=== PATIENT | male | born 1945 | race Caucasian/White ===

== ENCOUNTER → 2016-08-29 | Outpatient (CLI) | payer OTHER, MEDICARE ==
[2016-08-29 12:41] LABS: HEMOGLOBIN A1C 6.65 % (4.2-6.0); MEAN BLOOD GLUCOSE (CALC) 135.445 mg/dL
== END ==
LOC: MOB LAB 10:22
DX: E11.9 Type 2 diabetes mellitus without complications (principal)
CPT/HCPCS: 36415; 83036; 99213

== ENCOUNTER → 2016-11-20 | Outpatient (CLI) | payer OTHER, MEDICARE ==
[2016-11-20 12:18] LABS: BUN/CREATININE RATIO 25.45 (6-20); CALCIUM 9.7 mg/dL (8.7-10.7)
== END ==
LOC: MOB LAB 11:29
DX: E11.9 Type 2 diabetes mellitus without complications (principal); I10 Essential (primary) hypertension
CPT/HCPCS: 36415; 80048

== ENCOUNTER → 2017-03-15 | Outpatient (CLI) | payer OTHER, MEDICARE ==
[2017-03-15 17:36] LABS: BUN/CREATININE RATIO 27.5 (6-20); CALCIUM 9.7 mg/dL (8.7-10.7); SERUM ALBUMIN 4.5 g/dL (3.5-4.8)
[2017-03-15 17:37] LABS: HEMATOCRIT 45.6 % (42.0-52.0); HEMOGLOBIN 16.4 g/dL (14.0-18.0); MEAN CORPUSCULAR HEMOGLOBIN 32.4 PG (27-31); MEAN CORPUSCULAR VOLUME 90.1 FL (80-90); RED BLOOD COUNT 5.06 10^6/uL (4.70-6.10)
[2017-03-15 17:38] LABS: BASOPHILS # (AUTO) 0.04 10*3/UL; BASOPHILS % (AUTO) 0.7 % (0-1); EOSINOPHILS # (AUTO) 0.14 10*3/UL; EOSINOPHILS % (AUTO) 2.5 % (0-8); LYMPHOCYTES # (AUTO) 2.68 10*3/uL; MEAN PLATELET VOLUME 12.1 FL (7.4-12.2); MONOCYTES # (AUTO) 0.56 10*3/UL (0.3-0.8); MONOCYTES % (AUTO) 10.1 % (5-15); NEUTROPHILS # (AUTO) 2.13 10*3/UL; NEUTROPHILS % (AUTO) 38.3 % (50-80); PLATELET MORPHOLOGY COMMENT NORMAL MORPHOLOGY (NORM); RBC MORPHOLOGY COMMENT NORMAL MORPHOLOGY (NORM); WBC MORPHOLOGY COMMENT NORMAL MORPHOLOGY (NORM)
[2017-03-15 17:53] LABS: HEMOGLOBIN A1C 6.67 % (4.2-6.0)
[2017-03-15 17:54] LABS: BILIRUBIN,URINE NEGATIVE (NEG); CLARITY,URINE CLEAR (CLEAR); COLOR,URINE YELLOW; GLUCOSE, URINE (UA) NEGATIVE (NEG); NITRATE,URINE NEGATIVE (NEG); OCCULT BLOOD,URINE NEGATIVE (NEG); PH,URINE 5.5 (5.0-8.5); PROTEIN,URINE NEGATIVE (NEG); UROBILINOGEN,URINE 0.2 mg/dL (0.2)
[2017-03-15 18:09] LABS: URINE SAMPLE TYPE VOIDED SPECIMEN; WBC,URINE RARE
[2017-03-15 18:10] LABS: BACTERIA,URINE RARE; URINE CASTS FEW
--- NOTE | 2017-03-19 13:38 | EKG ---
[address] [address] Measurements Intervals [place] Rate: 49 P: -1 CO: 172 QRS: 47 QRSD: 106 T: -6 QT: 441 QTc: 411 Interpretive Statements SINUS BRADYCARDIA INFERIOR MYOCARDIAL INFARCTION AGE UNDETERMINED NONSPECIFIC ST CHANGES IN PRECORDIAL LEADS No previous ECG available for comparison Electronically Signed On 03-19-17 14:36:08 MDT by Calvin Mcclendon [email or web address] [id number]
== END ==
LOC: MOB EKG 14:46
DX: M17.11 Unilateral primary osteoarthritis, right knee (principal); E11.9 Type 2 diabetes mellitus without complications; G47.33 Obstructive sleep apnea (adult) (pediatric); I10 Essential (primary) hypertension; R00.1 Bradycardia, unspecified; I25.2 Old myocardial infarction
CPT/HCPCS: 36415; 80053; 81001; 83036; 85025; 86850; 86900; 86901; 87641; 93005; 93010

== ENCOUNTER → 2017-03-19 | Outpatient (CLI) | payer OTHER, MEDICARE ==
[2017-03-21 11:40] LABS: HEP B CORE IGM ANTIBODY Negative (Negative); HEPATITIS A IGM Negative (Negative); HEPATITIS B SURFACE AG Negative (Negative)
== END ==
LOC: MOB LAB 14:11
PROVIDERS: ATTEND Specialist
DX: I25.10 Atherosclerotic heart disease of native coronary artery without angina pectoris (principal); E11.9 Type 2 diabetes mellitus without complications; M17.11 Unilateral primary osteoarthritis, right knee; I10 Essential (primary) hypertension; E78.5 Hyperlipidemia, unspecified; E66.9 Obesity, unspecified; G47.30 Sleep apnea, unspecified; R06.09 Other forms of dyspnea
CPT/HCPCS: 36415; 83880; 84484; 86705; 86709; 86803; 87340; 99204; G0463

== ENCOUNTER → 2017-04-03 | Outpatient (CLI) | payer OTHER, MEDICARE ==
[2017-04-03 12:24] LABS: BASOPHILS # (AUTO) 0.04 10*3/UL; BASOPHILS % (AUTO) 0.7 % (0-1); EOSINOPHILS # (AUTO) 0.13 10*3/UL; EOSINOPHILS % (AUTO) 2.4 % (0-8); HEMATOCRIT 45.3 % (42.0-52.0); HEMOGLOBIN 15.7 g/dL (14.0-18.0); LYMPHOCYTES # (AUTO) 2.54 10*3/uL; MEAN CORPUSCULAR HEMOGLOBIN 32.2 PG (27-31); MEAN CORPUSCULAR HGB CONC 34.7 g/dL (33-37); MEAN CORPUSCULAR VOLUME 92.8 FL (80-90); MEAN PLATELET VOLUME 11.2 FL (7.4-12.2); MONOCYTES # (AUTO) 0.61 10*3/UL (0.3-0.8); MONOCYTES % (AUTO) 11.2 % (5-15); NEUTROPHILS # (AUTO) 2.14 10*3/UL; NEUTROPHILS % (AUTO) 39.1 % (50-80); RED BLOOD COUNT 4.88 10^6/uL (4.70-6.10)
[2017-04-03 12:31] LABS: BILIRUBIN,URINE NEGATIVE (NEG); CLARITY,URINE CLEAR (CLEAR); COLOR,URINE YELLOW; GLUCOSE, URINE (UA) 100 mg/dL (NEG); NITRATE,URINE NEGATIVE (NEG); OCCULT BLOOD,URINE NEGATIVE (NEG); PH,URINE 5.5 (5.0-8.5); PROTEIN,URINE NEGATIVE (NEG); UROBILINOGEN,URINE 0.2 EU/dL (0.2)
[2017-04-03 12:32] LABS: URINE SAMPLE TYPE CLEAN CATCH URINE
[2017-04-03 12:42] LABS: CALCIUM 10.4 mg/dL (8.7-10.7); SERUM ALBUMIN 4.2 g/dL (3.5-4.8)
[2017-04-03 12:52] LABS: PLATELET MORPHOLOGY COMMENT NORMAL MORPHOLOGY (NORM); RBC MORPHOLOGY COMMENT NORMAL MORPHOLOGY (NORM); WBC MORPHOLOGY COMMENT NORMAL MORPHOLOGY (NORM)
== END ==
LOC: LAB 11:58
PROVIDERS: ATTEND Orthopaedic Surgery
DX: M25.561 Pain in right knee (principal)
CPT/HCPCS: 36415; 80053; 81003; 85025; 86850; 86900; 86901; 87641